=== PATIENT | female | born 1940 | race American Indian/Alaskan Native ===

== ENCOUNTER 2016-11-05 06:35 | Day surgery (SDC) | payer MEDICARE ==
[~2016-11-05 06:35] MED LIST: ANCEF/STERILE WATER 2 GM/20 ML 2 GM/20 ML SYRINGE IV NR; NACL 0.9% 1000 ML 1,000 ML IV SCH
[2016-11-05] MEDS ORDERED: NACL 0.9% 500 ML 500 ML IV SCH (08:00)
[2016-11-05 08:04] LABS: Basophils % (Auto) 0.9 % (0.0-1.8); Eosinophils % (Auto) 3.5 % (0.0-4.3); Hematocrit 40.7 % (30.3-42.9); Hemoglobin 12.6 gm/dl (10.1-14.3); Mean Corpuscular HGB Conc 31 % (30-34); Mean Corpuscular Volume 84 fl (79-97); Platelet Count 190 K/mm3 (140-440); Red Blood Count 4.85 M/mm3 (3.65-5.03); Red Cell Distribution Width 18.7 % (13.2-15.2)
[2016-11-05 08:09] LABS: Mean Corpuscular Hemoglobin 26 pg (28-32)
[2016-11-05 08:16] LABS: BUN/Creatinine Ratio 20.83; Calcium 9.3 mg/dL (8.4-10.2); Chloride 104.9 mmol/L (98-107); Potassium 5.1 mmol/L (3.6-5.0)
[2016-11-05] MEDS ORDERED: NACL 0.9% 1000 ML 1,000 ML ONE (08:54)
[2016-11-05] MEDS ORDERED: XYLOCAINE 2% INFILTRATI ONE (09:41)
[2016-11-05] MEDS ORDERED: CALAN ONE (09:41)
[2016-11-05] MEDS ORDERED: HEPARIN/NS 5000 UNIT/500ML(CATH LAB) 1,000 ML IR ONE (09:41)
[2016-11-05] MEDS ORDERED: SUBLIMAZE ONE (09:41)
[2016-11-05] MEDS ORDERED: VERSED ONE (09:41)
[2016-11-05] MEDS ORDERED: ANCEF/STERILE WATER 2 GM/20 ML 2 GM/20 ML SYRINGE IV ONE (09:42)
[2016-11-05] MEDS ORDERED: NITROGLYCERIN SYRINGE 3 ML ONE (09:45)
[2016-11-05] MEDS ORDERED: NACL 0.9% 1000 ML 1,000 ML IV SCH (10:00)
[2016-11-05] MEDS: HEPARIN 10,000 UNITS/10 ML ONE ×2 (10:17→10:22)
--- NOTE | 2016-11-05 11:11 | Short Stay Summary ---
Short Stay Documentation Date of service: 11/05/16 Narrative H&P: 76-year-old female who presents with left lower extremity critical limb ischemia and endovascular aortic repair in 2013 with [place] excluder. - History Principal diagnosis: Critical limb ischemia H&P: obtained from office - Allergies and Medications Current Medications: Allergies Sulfa (Sulfonamide Antibiotics) Allergy (Mild, Verified 11/05/16 07:30) Rash Home Medications Medication Instructions Recorded Confirmed Last Taken Type Allopurinol [Allopurinol] 100 mg PO BID 08/01/13 11/05/16 11/04/16 History 100mg Aspirin [Baby Aspirin] 81 mg PO DAILY 08/01/13 11/05/16 11/04/16 History 81mg Atorvastatin (Nf) [Lipitor] 20 mg PO QHS 08/01/13 11/05/16 11/04/16 History 20mg Diltiazem HCl [Diltiazem 24Hr Cd] 240 mg PO DAILY 08/01/13 11/05/16 11/04/16 History 240 Pregabalin [Lyrica] 50 mg PO TID 08/01/13 11/05/16 11/04/16 History Vit D3 & K/Berberine HCl/Hops 1 tab PO DAILY 01/09/14 11/05/16 11/04/16 History [Ostera Tablet] 1 tab Acetaminophen ER TAB 2 tab PO PRN PRN 11/05/16 11/05/16 11/04/16 History 2 tab Active Medications Cefazolin Sodium (Ancef/Sterile Water 2 Gm/20 Ml) 2 gm in 20 mls @ 80 mls/hr IV PREOP NR PRN Reason: Protocol Stop: 11/05/16 23:59 Last Admin: 11/05/16 09:55 Dose: 20 mls Sodium Chloride (Nacl 0.9% 500 Ml) 500 mls @ 50 mls/hr IV DIRECT ELISE Sodium Chloride (Nacl 0.9% 1000 Ml) 1,000 mls @ 200 mls/hr IV DIRECT ELISE - Physical exam General appearance: no acute distress Lungs: Normal air movement - Brief post op/procedure progress note Date of procedure: 11/05/16 Pre-op diagnosis: Critical limb ischemia Post-op diagnosis: same Procedure: diagnostic angiography from left radial approach Anesthesia: local Surgeon: LENA CHENG Estimated blood loss: minimal Condition: stable - Hospital course Hospital course: Tolerated without issue. - Disposition Condition at discharge: Stable Disposition: DC-[id number] TO HOME OR SELFCARE Short Stay Discharge Plan Activity: advance as tolerated Weight Bearing Status: Weight Bear as Tolerated Diet: renal Wound: keep clean and dry Follow up with: KG BARR MD [Primary Care Provider] - 7 Days
--- NOTE | 2016-11-05 11:13 | Operative Report ---
Operative Report Operative Report: EXAM: 1. Ultrasound-guided access of the left radial artery 2. Selection of the thoracic aorta and abdominal aorta with angiography of the abdominal aorta 3. Selection of the right external iliac artery with angiography of the right lower extremity DATE: 11/05/16 CHRONIC SPECIALIST: LENA CHENG MD INDICATION: Critical limb ischemia of the left lower extremity with nonpalpable pedal pulses, and prior endovascular aortic repair with Junction EXCLUDER graft. MEDICATIONS: Please see nursing report for full details. DEVICES: None. CONTRAST: Please see lab report for full details PROCEDURE: The risks, benefits, and alternatives were discussed with the patient; written informed consent was obtained. The patient's left arm was prepped and draped in a sterile fashion. The left radial artery was assessed with ultrasound and was patent. There is an early bifurcation a few centimeters from the wrist. Above the bifurcating area, the radial artery resumes a normal caliber. This area was accessed under direct ultrasound guidance with a 21-gauge micropuncture needle. 0.018 inch wire was passed through the artery. Needle was exchanged for a 5/6 glidesheath slender. Radial cocktail was administered. 2500 units of additional heparin was administered for a total of 5000 heparin. 0.035 inch wire and a pigtail catheter used to select the descending thoracic aorta and subsequently the abdominal aorta. I attempted to select the right side of the endograft with a 0.035 inch Bentson wire and an angled catheter, but this was more difficult than it should be. I then tried with a Glidewire advantage. After a few attempts, digital subtraction angiography was performed in the abdominal aorta demonstrating that the aortic Junction Excluder endograft had a thrombosed right sided limb. 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 The aorta above the renal arteries was patent. The aorta below the renal arteries was tapered with eccentric clot on the right wall with associated occlusion of the iliac limb that extended into the left side. The right sided iliac limb was widely patent. I attempted to select the right iliac limb with an MPA catheter and the glidewire advantage. I could pass the catheter into the proximal few centimeters of the right iliac limb, although this was difficult. 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 Another supporting characteristic was that the clot had extended into the infrarenal aortic graft eccentrically along the right wall. I then selected the right external iliac artery and perform digital subtraction angiography demonstrating patency of the right external iliac artery, right common femoral artery, right profundus femoral artery, and right proximal superficial femoral artery. Catheters and wires were removed. Sheath was removed and pressure bandage was applied. Patient tolerated the procedure well. No immediate post procedure complication. Patient was then scheduled for CT angiogram of the abdomen and pelvis with runoff the lower extremities for the upcoming Wednesday and will be seen in the office this upcoming Wednesday. Discussed preliminarily with the family and patient that she may require a femoral-femoral bypass graft for left critical limb ischemia. FINDINGS: Please see procedure note above. IMPRESSION: Successful selection of the abdominal aorta and right lower extremity with angiography.
[2016-11-05 12:46] VITALS: BP 134/71
== END 2016-11-05 13:15 | disposition home or self-care (01) ==
LOC: CATHLABREC 06:35
PROVIDERS: ATTEND Radiology Diagnostic Radiology
DX: I70.245 Atherosclerosis of native arteries of left leg with ulceration of other part of foot (principal); I87.2 Venous insufficiency (chronic) (peripheral); I12.9 Hypertensive chronic kidney disease with stage 1 through stage 4 chronic kidney disease, or unspecified chronic kidney disease; N18.3 Chronic kidney disease, stage 3 (moderate); E78.00 Pure hypercholesterolemia, unspecified; M19.90 Unspecified osteoarthritis, unspecified site; Z98.890 Other specified postprocedural states; Z72.89 Other problems related to lifestyle; Z88.2 Allergy status to sulfonamides; Z79.899 Other long term (current) drug therapy; Z79.82 Long term (current) use of aspirin
CPT/HCPCS: 36246; 36415; 75625; 75710; 80048; 85025; C1769; C1887; C1894; J0690; J1644; J2250; J3010; J7030; Q9967